=== PATIENT | male | born 1980 | race Caucasian/White ===

== ENCOUNTER 2020-05-08 23:28 | Emergency (ER) | payer OTHER ==
[~2020-05-08] VITALS: Ht 167.6 cm; Wt 74.4 kg
[2020-05-08 23:37] VITALS: Ht 167.6 cm; Wt 74.4 kg
[2020-05-08 23:53] LABS: RED CELL DISTRIBUTION WIDTH 13.8 % (12.1-16.2)
[2020-05-08 23:55] LABS: BASOPHIL % 0.8 % (0.2-1.5); PLATELET COUNT 242 x10^3mcL (152-348)
[2020-05-09 00:24] LABS: CALCIUM 8.7 mg/dL (8.5-10.1); CARBON DIOXIDE 20.3 mmol/L (21-32); CHLORIDE SERUM 103 mmol/L (98-107); CREATININE SERUM 1.3 mg/dL (0.7-1.3); GFR1 > 60 mL/min; GLUCOSE SERUM 102 mg/dL (74-106); POTASSIUM SERUM 3.8 mmol/L (3.5-5.1); SODIUM SERUM 141 mmol/L (136-145)
[2020-05-09 00:28] LABS: ALKALINE PHOSPHATASE 107 U/L (46-116); ALT/SGPT 39 U/L (16-63); AMYLASE 68 U/L (25-115); AST/SGOT 32 U/L (15-37); BILIRUBIN TOTAL 0.3 mg/dL (0.20-1.00); LIPASE 181 IU/L (73-393); TOTAL PROTEIN, SERUM 7.4 g/dL (6.4-8.2)
[2020-05-09] MEDS ORDERED: PRILOSEC OTC20 M1 PO (01:22)
[2020-05-09] MEDS ORDERED: ONDANSETRON4 M3 PO (01:22)
[2020-05-09 02:06] VITALS: BP 118/79
== END 2020-05-09 01:59 | disposition home or self-care (01) ==
LOC: ED 23:28
PROVIDERS: Emergency Medicine
DX: K21.9 Gastro-esophageal reflux disease without esophagitis (principal)
CPT/HCPCS: J1200; J2405; J2765; J3490